=== PATIENT | female | born 1975 | race Caucasian/White ===

== ENCOUNTER 2021-08-02 07:31 | Emergency (ER) | payer OTHER ==
[2021-08-02 07:46] VITALS: BP 138/87; PULSE 88; TEMP 98.8; BMI 36.3
[2021-08-03 19:06] LABS: SARS-CoV-2 NAA Not Detected (Not Detected)
== END 2021-08-02 08:42 | disposition home or self-care (01) ==
LOC: JER 07:31
DX: J11.1 Influenza due to unidentified influenza virus with other respiratory manifestations (principal)
CPT/HCPCS: 99283-25; C9803; U0003; U0005

== ENCOUNTER 2022-12-08 04:48 | Day surgery (SDC) | payer OTHER ==
[2022-12-07 15:09] VITALS: BMI 34.7
[2022-12-08] MEDS ORDERED: MIDAZOLAM HCL 2 MG/2 ML SINGLE DOSE VIAL ONE (12:00)
[2022-12-08 12:53] VITALS: TEMP 98.2
[2022-12-08 13:03] VITALS: BP 97/57; PULSE 62; RESP 19
== END 2022-12-08 13:01 | disposition home or self-care (01) ==
LOC: JASU-ENDO 04:48
PROVIDERS: ATTEND Student in an Organized Health Care Education/Training Program
PROC: 0DBL8ZX Excision of Transverse Colon, Via Natural or Artificial Opening Endoscopic, Diagnostic (ICD-10-PCS; 2022-12-08)
PROC: 0DBN8ZX Excision of Sigmoid Colon, Via Natural or Artificial Opening Endoscopic, Diagnostic (ICD-10-PCS; principal; 2022-12-08 12:00)
DX: K64.8 Other hemorrhoids (principal); D12.3 Benign neoplasm of transverse colon; D12.5 Benign neoplasm of sigmoid colon; K64.4 Residual hemorrhoidal skin tags; Z80.0 Family history of malignant neoplasm of digestive organs
CPT/HCPCS: 81025; 88305-TC

== ENCOUNTER 2023-01-01 17:30 | Emergency (ER) | payer OTHER ==
[2023-01-01 17:34] VITALS: BP 136/85; PULSE 86; RESP 18; TEMP 98; BMI 34.7
[2023-01-01] MEDS ORDERED: IBUPROFEN 600 MG TABLET (FP) PO ONE ×2 (19:16→19:22)
== END 2023-01-01 22:37 | disposition home or self-care (01) ==
LOC: JERFT 17:30
PROC: 2W3TX1Z Immobilization of Left Foot using Splint (ICD-10-PCS; principal; 2023-01-01)
DX: S92.222A Displaced fracture of lateral cuneiform of left foot, initial encounter for closed fracture (principal); X58.XXXA Exposure to other specified factors, initial encounter
CPT/HCPCS: 73610-TC-LT-FY; 73630-TC-LT; 73700-TC-RT; 99284-25